=== PATIENT | female | born 1965 | race Caucasian/White ===

== ENCOUNTER → 2017-03-21 | Outpatient (CLI) | payer BC ==
--- NOTE | 2017-03-22 11:20 | MM ---
Reason for exam: screening (asymptomatic). Last mammogram was performed 1 year and 3 months ago. History: Patient had first child at age 41. Family history of breast cancer in maternal aunt at age 65, breast cancer in maternal grandmother at age 70, and breast cancer in mother at age 74. Benign right breast needle localzation of the right breast, September 08, 2011. Benign right mammotome panel of the right breast, August 09, 2011. Benign excisional biopsy of the right breast, November 11, 2004. Took hormonal contraceptives for 4 years beginning at age 27. Physical Findings: A clinical breast exam by your physician is recommended on an annual basis and results should be correlated with mammographic findings. MG Screening Mammo w CAD Bilateral CC and MLO view(s) were taken. Prior study comparison: December 21, 2015, bilateral MG screening mammo w CAD. October 22, 2014, bilateral MG screening mammo w CAD. The breast tissue is extremely dense which could obscure a lesion on mammography. Finding: There are typically benign dystrophic, round calcifications in both breasts. There is no discrete abnormality. ASSESSMENT: Benign, BI-RAD 2 RECOMMENDATION: Routine screening mammogram of both breasts in 1 year.
== END | disposition home or self-care (01) ==
LOC: RADMAMWWP 16:53
PROVIDERS: ATTEND Internal Medicine
DX: Z12.31 Encounter for screening mammogram for malignant neoplasm of breast (principal)

== ENCOUNTER → 2018-04-22 | Outpatient (CLI) | payer BC ==
--- NOTE | 2018-04-23 11:18 | MM ---
Reason for exam: screening (asymptomatic). Last mammogram was performed 1 year and 1 month ago. History: Patient had first child at age 41. Family history of breast cancer in maternal aunt at age 65, breast cancer in maternal grandmother at age 70, and breast cancer in mother at age 74. Benign right breast needle localzation of the right breast, September 08, 2011. Benign right mammotome panel of the right breast, August 09, 2011. Benign excisional biopsy of the right breast, November 11, 2004. Took hormonal contraceptives for 4 years beginning at age 27. Physical Findings: A clinical breast exam by your physician is recommended on an annual basis and results should be correlated with mammographic findings. MG Screening Mammo w CAD Bilateral CC and MLO view(s) were taken. Prior study comparison: March 21, 2017, bilateral MG screening mammo w CAD. December 21, 2015, bilateral MG screening mammo w CAD. The breast tissue is heterogeneously dense. This may lower the sensitivity of mammography. There is chronic nodularity bilaterally. No significant changes when compared with prior studies. ASSESSMENT: Benign, BI-RAD 2 RECOMMENDATION: Routine screening mammogram of both breasts in 1 year.
== END | disposition home or self-care (01) ==
LOC: RADMAMWWP 15:25
PROVIDERS: ATTEND Internal Medicine
DX: Z12.31 Encounter for screening mammogram for malignant neoplasm of breast (principal)
CPT/HCPCS: 77067

== ENCOUNTER → 2019-04-14 | Outpatient (CLI) | payer BC ==
--- NOTE | 2019-04-15 08:19 | XR ---
EXAMINATION TYPE: XR lumbosacral spine min 4V DATE OF EXAM: 04/14/2019 CLINICAL HISTORY: Low back pain, nontraumatic. TECHNIQUE: Frontal, lateral, and oblique images of the lumbar spine are obtained. COMPARISON: None FINDINGS: Stool overlies the lower lumbar vertebral bodies on the frontal and lateral images, limiti ng evaluation for lytic or sclerotic lesions. There are 5 lumbar type vertebral bodies identified. T he lumbar spine shows satisfactory alignment without evidence of acute fracture or dislocation. Multi level facet arthropathy is seen from L3 through S1 with small anterior osteophytes of the lumbar spin e. Vertebral body heights and disk space heights are within normal limits. The oblique images appea r within normal limits. The overlying soft tissue appears unremarkable. IMPRESSION: No acute fracture or malalignment is seen in the lumbar spine. Mild multilevel degenerat kareem disc disease of the lumbar spine.
== END ==
LOC: RADXRMAIN 19:03
PROVIDERS: ATTEND Internal Medicine
DX: M51.36 Other intervertebral disc degeneration, lumbar region (principal)
CPT/HCPCS: 72110

== ENCOUNTER → 2019-04-21 | Outpatient (CLI) | payer BC ==
--- NOTE | 2019-04-21 15:30 | XR ---
EXAMINATION TYPE: XR cervical spine comp DATE OF EXAM: 04/21/2019 TECHNIQUE: Frontal, lateral, oblique, swimmers, and open mouth view of the cervical spine are obtaine d. HISTORY: R52 Pain chronic neck pain with no known injury COMPARISON: None FINDINGS: The cervical spine is visualized in its entirety from C1 thru the top of T1 level, it is s atisfactory in alignment without evidence of acute fracture or dislocation. Prevertebral soft tissues are within normal limits. The C1-C2 articulation is aligned on the open mouth view. No odontoid frac ture is seen. Posterior projecting osteophytes are seen at C4-C5, C5-C6 and C6-C7. Oblique images dem onstrate very minimal neural foraminal narrowing on the right at C4-C5, C5-C6, C6-C7 and C7-T1 and on the left at C4-C5, C5-C6, and C6-C7. IMPRESSION: No acute fracture or dislocation is seen in the cervical spine. Moderate multilevel dege nerative disc disease of the cervical spine.
== END ==
LOC: RADXRWHC 14:54
PROVIDERS: ATTEND Internal Medicine
DX: M50.30 Other cervical disc degeneration, unspecified cervical region (principal)
CPT/HCPCS: 72050

== ENCOUNTER → 2019-05-02 | Outpatient (CLI) | payer BC ==
--- NOTE | 2019-05-02 12:17 | MR ---
EXAMINATION TYPE: MR lumbar spine wo con DATE OF EXAM: 05/02/2019 COMPARISON: Lumbar spine x-ray April 14, 2019 HISTORY: lumbago TECHNIQUE: Multiplanar, multisequence imaging of the lumbar spine is performed without IV contrast. FINDINGS: Sagittal images of the lumbar spine show vertebral body heights and alignment to appear sat isfactory. Multilevel disc desiccation is seen. Mild disc space narrowing L3-L4 level. The conus medu llaris is normal in position and signal ending L1-L2 level. Mild anterior spurring mid to lower lumba r spine. The bone marrow signal intensity is within normal limits. Axial images show the T12-L1, L1-L2, and L2-L3 levels all to appear within normal limits. Axial images at the L3-L4 level shows mild facet degenerative changes bilaterally with mild broad dis c bulge minimally effacing the anterior thecal sac. Patent bilateral neural foramina. Axial images at L4-L5 levels show digk-[id number] facet degenerative changes bilaterally and ligamen tian flavum hypertrophy. There is mild broad disc bulge with central disc protrusion component mildly effaces the anterior thecal sac. Bilateral neural foramina are patent. Axial images at the L5-S1 level without within normal limits. No suspicious incidental retroperitoneal findings. IMPRESSION: Multilevel degenerative changes most prominent L3-L4 and L4-L5 levels as detailed above.
== END ==
LOC: RADMRIMAIN 11:29
PROVIDERS: ATTEND Internal Medicine
DX: M48.061 Spinal stenosis, lumbar region without neurogenic claudication (principal); M51.16 Intervertebral disc disorders with radiculopathy, lumbar region; M47.816 Spondylosis without myelopathy or radiculopathy, lumbar region
CPT/HCPCS: 72148

== ENCOUNTER → 2019-05-28 | Outpatient (CLI) | payer BC ==
--- NOTE | 2019-05-30 10:12 | MM ---
Reason for exam: screening (asymptomatic). Last mammogram was performed 1 year and 1 month ago. History: Patient had first child at age 41. Family history of breast cancer in maternal aunt at age 65, breast cancer in maternal grandmother at age 70, and breast cancer in mother at age 74. Benign right breast needle localzation of the right breast, September 08, 2011. Benign right mammotome panel of the right breast, August 09, 2011. Benign excisional biopsy of the right breast, November 11, 2004. Took hormonal contraceptives for 4 years beginning at age 27. Physical Findings: A clinical breast exam by your physician is recommended on an annual basis and results should be correlated with mammographic findings. MG Screening Mammo w CAD Bilateral CC and MLO view(s) were taken. Prior study comparison: April 22, 2018, bilateral MG screening mammo w CAD. March 21, 2017, bilateral MG screening mammo w CAD. The breast tissue is extremely dense which could obscure a lesion on mammography. There is chronic nodularity in the left breast medially on the CC view. No significant changes when compared with prior studies. ASSESSMENT: Benign, BI-RAD 2 RECOMMENDATION: Routine screening mammogram of both breasts in 1 year. Patient should continue monthly self breast exams. A negative report should not preclude additional follow up of suspicious palpable abnormalities.
== END | disposition home or self-care (01) ==
LOC: RADMAMWWP 16:13
PROVIDERS: ATTEND Internal Medicine
DX: Z12.31 Encounter for screening mammogram for malignant neoplasm of breast (principal)
CPT/HCPCS: 77067

== ENCOUNTER → 2020-10-01 | Outpatient (CLI) | payer BC ==
--- NOTE | 2020-10-07 10:36 | MM ---
Reason for exam: screening (asymptomatic). Last mammogram was performed 1 year and 4 months ago. History: Patient is postmenopausal and had first child at age 41. Family history of breast cancer in maternal aunt at age 65, breast cancer in maternal grandmother at age 70, and breast cancer in mother at age 74. Benign right breast needle localzation of the right breast, September 08, 2011. Benign right mammotome panel of the right breast, August 09, 2011. Benign excisional biopsy of the right breast, November 11, 2004. Took hormonal contraceptives for 4 years beginning at age 27. Physical Findings: A clinical breast exam by your physician is recommended on an annual basis and results should be correlated with mammographic findings. MG Screening Mammo w CAD Bilateral CC and MLO view(s) were taken. Prior study comparison: May 28, 2019, bilateral MG screening mammo w CAD. April 22, 2018, bilateral MG screening mammo w CAD. The breast tissue is extremely dense which could obscure a lesion on mammography. There is chronic nodularity in the left breast medially. Regional punctate calcifications left breast are unchanged. No significant changes when compared with prior studies. ASSESSMENT: Benign, BI-RAD 2 RECOMMENDATION: Routine screening mammogram of both breasts in 1 year. Patient should continue monthly self breast exams. A negative report should not preclude additional follow up of suspicious palpable abnormalities.
== END | disposition home or self-care (01) ==
LOC: RADMAMWWP 14:59
PROVIDERS: ATTEND Internal Medicine
DX: Z12.31 Encounter for screening mammogram for malignant neoplasm of breast (principal)
CPT/HCPCS: 77067

== ENCOUNTER → 2021-11-01 | Outpatient (CLI) | payer BC ==
--- NOTE | 2021-11-01 09:14 | XR ---
EXAMINATION TYPE: XR chest 2V DATE OF EXAM: 11/01/2021 COMPARISON: Chest x-ray August 23, 2015 HISTORY: Cough. TECHNIQUE: Frontal and lateral views of the chest are obtained. FINDINGS: There is no suspicious new focal air space opacity, pleural effusion, or pneumothorax see n. The cardiac silhouette size remains within normal limits. Underlying scoliotic curvature redemons trated. IMPRESSION: No acute process .
== END | disposition home or self-care (01) ==
LOC: RADXRMAIN 08:49
PROVIDERS: ATTEND Internal Medicine
DX: R05.9 Cough, unspecified (principal)
CPT/HCPCS: 71046

== ENCOUNTER → 2021-12-02 | Outpatient (CLI) | payer BC ==
--- NOTE | 2021-12-06 08:35 | MM ---
Reason for Exam: Screening (asymptomatic). Last mammogram was performed 1 year(s) and 2 month(s) ago. Patient History: Menarche at age 14. First Full-Term at age 41. Late child-bearing (after 30). Postmenopausal. Hormonal Contraceptives for 4 years from age 27 until age 31. 11/11/2004, Benign Excisional Biopsy on the right side. 09/08/2011, Benign Excisional Biopsy on the right side. 08/09/2011, Benign Core Biopsy on the right side. Maternal grandmother had breast cancer, age 70. Maternal aunt had breast cancer, age 65. Mother had breast cancer, age 74. Risk Values: Idalia 5 year model risk: 3.6%. NCI Lifetime model risk: 22.8%. Film Views: Bilateral CC views were taken. Bilateral MLO views were taken. Prior Study Comparison: 04/22/2018 Bilateral Screening Mammogram, [facility]. 05/28/2019 Bilateral Screening Mammogram, [facility]. 10/01/2020 Bilateral Screening Mammogram, [facility]. Tissue Density: The breast tissue is extremely dense which could obscure a lesion on mammography. Findings: Analyzed By CAD. Few scattered benign-appearing round and punctate calcifications bilaterally are redemonstrated. There is no new distortion or new suspicious group of microcalcifications in either breast. Overall Assessment: Benign, BI-RAD 2 Management: Screening Mammogram of both breasts in 1 year. Some advise annual bilateral breast ultrasound surveillance of patient's with background dense tissue. Electronically signed and approved by: Raymond Alfred M.D.
== END | disposition home or self-care (01) ==
LOC: RADMAMWWP 16:56
PROVIDERS: ATTEND Internal Medicine
DX: Z12.31 Encounter for screening mammogram for malignant neoplasm of breast (principal)
CPT/HCPCS: 77067

== ENCOUNTER → 2021-12-14 | Outpatient (CLI) | payer BC | END | disposition home or self-care (01) | LOC: LABWHC1 14:53 | PROVIDERS: ATTEND Internal Medicine | DX: R53.83 Other fatigue (principal) | CPT/HCPCS: 36415; 84443 ==

== ENCOUNTER → 2022-11-02 | Outpatient (CLI) | payer BC ==
--- NOTE | 2022-11-02 08:01 | CTL ---
EXAMINATION TYPE: CT Low Dose Lung DATE OF EXAM ORDERED: 11/02/2022 COMPARISON: HISTORY: . Low Dose CT Lung Screening CT DLP: 38.[address] CTDI: 1.0 mGy IV CONTRAST USED: None. SCREENING VISIT: First visit COMPARISON: None. TECHNIQUE: Low dose computed tomography scan was performed through the chest at 1 millimeter thick se ctions and reconstructed images in the coronal plane at [address] DIAGNOSTIC QUALITY: Satisfactory FINDINGS: LUNG NODULES: Not presentLeft lung: no nodules identified.Right lung: no nodules identified. LUNGS: COPD: Severity: Mild Fibrosis: Severity:None Lymph nodes: None Other findings: There is biapical scarring noted. RIGHT PLEURAL SPACE: Effusion: None Calcification: None Thickening: None Pneumothorax: None LEFT PLEURAL SPACE: Effusion: None Calcification: None Thickening: None Pneumothorax: None HEART: Heart Size: Mildly enlarged Coronary calcification: Mild Pericardial effusion: None OTHER FINDINGS: Upper abdomen: No significant abnormality Bony thorax: Degenerative changes Supraclavicular region: No significant abnormalityOther: No significant abnormalityI IMPRESSION: No suspicious nodule seen over [address] CHEST RECOMMENDATION: Follow-up screening in one year CT LUNG RAD: LUNG RAD CATEGORY 1 negative
== END | disposition home or self-care (01) ==
LOC: RADCTMAIN 06:13
PROVIDERS: ATTEND Internal Medicine
DX: Z12.2 Encounter for screening for malignant neoplasm of respiratory organs (principal); F17.210 Nicotine dependence, cigarettes, uncomplicated
CPT/HCPCS: 71271

== ENCOUNTER → 2022-12-12 | Outpatient (CLI) | payer BC ==
--- NOTE | 2022-12-13 09:02 | MM ---
Reason for Exam: Screening (asymptomatic). Last mammogram was performed 1 year(s) and 1 month(s) ago. Patient History: Menarche at age 14. First Full-Term at age 41. Late child-bearing (after 30). Postmenopausal. Hormonal Contraceptives for 4 years from age 27 until age 31. 11/11/2004, Benign Excisional Biopsy on the right side. 09/08/2011, Benign Excisional Biopsy on the right side. 08/09/2011, Benign Core Biopsy on the right side. Maternal grandmother had breast cancer, age 70. Maternal aunt had breast cancer, age 65. Mother had breast cancer, age 74. Risk Values: Idalia 5 year model risk: 3.7%. NCI Lifetime model risk: 22.4%. Prior Study Comparison: 05/28/2019 Bilateral Screening Mammogram, [facility]. 10/01/2020 Bilateral Screening Mammogram, [facility]. 12/02/2021 Bilateral MG screening mammo w CAD, [facility]. Tissue Density: The breast tissue is extremely dense which could obscure a lesion on mammography. Findings: Analyzed By CAD. There are scattered and loosely grouped benign-appearing rounded dystrophic calcifications bilaterally redemonstrated. There is no suspicious group of microcalcifications or new suspicious mass in either breast. Overall Assessment: Benign, BI-RAD 2 Management: Screening Mammogram of both breasts in 1 year. . Patient should continue monthly self-breast exams. A clinical breast exam by your physician is recommended on an annual basis. This exam should not preclude additional follow-up of suspicious palpable abnormalities. Note on Idalia scores and lifetime risk: 1. A Idalia score greater than 3% is considered moderate risk. If this is the case, consider specialist referral to assess eligibility for a risk reducing agent. 2. If overall lifetime risk for the development of breast cancer is 20% or higher, the patient may qualify for future screening with alternating mammogram and breast MRI. Electronically signed and approved by: Raymond Alfred M.D.
== END | disposition home or self-care (01) ==
LOC: RADMAMWWP 07:26
PROVIDERS: ATTEND Internal Medicine
DX: Z12.31 Encounter for screening mammogram for malignant neoplasm of breast (principal); Z78.0 Asymptomatic menopausal state; Z80.3 Family history of malignant neoplasm of breast
CPT/HCPCS: 77063; 77067

== ENCOUNTER → 2022-12-25 | Outpatient (CLI) | payer BC ==
--- NOTE | 2022-12-25 18:36 | BD ---
EXAMINATION TYPE: Axial Bone Density DATE OF EXAM: 12/25/2022 CLINICAL HISTORY: 57 years old Female. ICD-10 CODE: N95.8 MENOPAUSAL AND PERIMENOPAUSAL STATE Height: 64.5" Weight: 107.3lbs FRAX RISK QUESTIONS: Alcohol (3 or more units per day): No Family History (Parent hip fracture): No Glucocorticoids (More than 3mos): No (Ex: prednisone, prednisolone, methylprednisolone, dexamethasone, and hydrocortisone). History of Fracture in Adulthood: No Secondary Osteoporosis: 1. Type 1 Diabetes: No 2. Hyperthyroidism: Yes, managing with diet not medications 3. Menopause before 45: No 4. Malnutrition: No 5. Chronic liver disease: No Rheumatoid Arthritis: No Current Tobacco Use: No RISK FACTORS HISTORY OF: Hip Fracture (Right/Left): No Spine Fracture: No History of Wrist Fracture: No Surgery to Spine/Hip(right/left)/Wrist (right/left): No Family History of Osteoporosis: No Active: Yes Diet low in dairy products/other sources of calcium: No Postmenopausal woman: Yes Lost more than 2 inches in height since high school: No Frequent falls: No Poor Health: No Hyperparathyroidism: No Adrenal Insufficiency: No MEDICATIONS: Prednisone or other steroids: No Thyroid Medications: No Osteoporosis Medications: No Additional Medications: Calcium, OTC menopause Estroven Additional History: None EXAM MEASUREMENTS: Bone mineral densitometry was performed using the [employer] System. Bone mineral density as measured about the Lumbar spine is: ----- L1-L4(G/cm2): 1.021 T Score Values are as follows: ----- L1: -1.7 ----- L2: -1.6 ----- L3: -0.9 ----- L4: -1.3 ----- L1-L4: -1.3 Z Score Values are as follows: ----- L1: -0.2 ----- L2: -0.2 ----- L3: 0.5 ----- L4: 0.1 ----- L1-L4: 0.1 Baseline Bone mineral density about the R hip (g/cm2): 0.686 Bone mineral density about the L hip (g/cm2): 0.668 T Score values are as follows: -----R Neck: -2.6 -----L Neck: -2.7 -----R Total: -2.5 -----L Total: -2.7 Z Score values are as follows: -----R Neck: -1.2 -----L Neck: -1.3 -----R Total: -1.5 -----L Total: -1.6 Baseline FRAX%s: The graph provided illustrates a 9.0% chance for a major osteoporotic fx and a 2.2% chance fo r the hips probability for fx in 10 years time. IMPRESSION: Osteoporosis (T Score less than -2.5). There is increased fracture risk and therapy is usually indicated based on age. Re-Screen 1-2 years. NOTE: T-SCORE=SD OF THE YOUNG ADULT MEAN.
== END | disposition home or self-care (01) ==
LOC: RADBDWWP 15:38
PROVIDERS: ATTEND Internal Medicine
DX: M81.0 Age-related osteoporosis without current pathological fracture (principal); E05.90 Thyrotoxicosis, unspecified without thyrotoxic crisis or storm; N95.8 Other specified menopausal and perimenopausal disorders
CPT/HCPCS: 77080

== ENCOUNTER → 2023-11-14 | Outpatient (CLI) | payer BC ==
--- NOTE | 2023-11-14 16:02 | CTL ---
EXAMINATION TYPE: CT Low Dose Lung DATE OF EXAM: 11/14/2023 3:44 PM CLINICAL INDICATION:Female, 58 years old with history of Z12.2 ENCNTR SCREEN FOR MALIGNANT NEOPLASM O F RESP; personal tobacco use , history of tobacco use. COMPARISON: 11/02/2022 TECHNIQUE: Multiple axial non-contrast scans were obtained from approximately the lung apices through the upper abdomen. Coronal and sagittal reformatted images were obtained. Low dose technique was uti lized. CT DLP: 79 mGycm, Automated exposure control for dose reduction was used. CT Contrast: Contrast used: None Oral contrast used: None FINDINGS: ======== Lack of intravenous contrast and low dose technique limits the evaluation of the vascular and soft ti ssue structures. LUNGS: No evidence of pulmonary fibrosis. No evidence of focal consolidation, pneumothorax or pleural effusion. Mild centrilobular emphysema changes throughout the lungs Nodules: RUL: None. RML: None. RLL: None. ALLI: None. LLL: None. AIRWAY: Patent and unremarkable. HEART: Size within normal limits. MEDIASTINUM: No gross evidence of adenopathy. VASCULATURE: No aortic aneurysm. MUSCULOSKELETAL: No acute osseous abnormalities SOFT TISSUES/LYMPH NODES: Unremarkable. LOWER NECK: No significant findings. UPPER ABDOMEN: No significant findings. IMPRESSION: 1. No clinically significant pulmonary nodules. 2. Mild emphysema. CT LUNG RAD AND CT CHEST RECOMMENDATION: Lung-Rad 1 Negative: Continue annual screening with LDCT in 12 months. S Modifier (other clinically significant findings): None Recommend smoking cessation (if current smoker), or continuation of smoking cessation (if prior smoke r). Annual screening for lung cancer with low-dose computed tomography is recommended in adults ages 55 to 77 years who have a 30 pack-year smoking history and currently smoke or have quit within the pa st 15 years. Screening should be discontinued once a person has not smoked for 15 years or develops a health problem that substantially limits life expectancy or the ability or willingness to have curat kareem lung surgery. Lung rads 2021 [email or web address]
== END | disposition home or self-care (01) ==
LOC: RADCTMAIN 14:59
PROVIDERS: ATTEND Internal Medicine
DX: Z12.2 Encounter for screening for malignant neoplasm of respiratory organs (principal); J43.2 Centrilobular emphysema; Z87.891 Personal history of nicotine dependence
CPT/HCPCS: 71271

== ENCOUNTER → 2023-12-14 | Outpatient (CLI) | payer BC ==
--- NOTE | 2023-12-17 13:22 | MM ---
Reason for Exam: Screening (asymptomatic). Last screening mammogram was performed 12 month(s) ago. Patient History: Menarche at age 14. First Full-Term at age 41. Late child-bearing (after 30). Postmenopausal. Hormonal Contraceptives for 4 years from age 27 until age 31. 11/11/2004, Benign Excisional Biopsy on the right side. 09/08/2011, Benign Excisional Biopsy on the right side. 08/09/2011, Benign Core Biopsy on the right side. Maternal grandmother had breast cancer, age 70. Maternal aunt had breast cancer, age 65. Mother had breast cancer, age 74. Risk Values: Idalia 5 year model risk: 3.9%. NCI Lifetime model risk: 22.0%. Prior Study Comparison: 10/01/2020 Bilateral Screening Mammogram, [facility]. 12/02/2021 Bilateral MG screening mammo w CAD, [facility]. 12/12/2022 Bilateral MG 3D screening mammo w/cad, [facility]. Tissue Density: The breasts are extremely dense, which lowers the sensitivity of mammography. Findings: Analyzed By CAD. There is no suspicious group of microcalcifications or new suspicious mass in either breast. Overall Assessment: Benign, BI-RAD 2 Management: Screening Mammogram of both breasts in 1 year. . Patient should continue monthly self-breast exams. A clinical breast exam by your physician is recommended on an annual basis. This exam should not preclude additional follow-up of suspicious palpable abnormalities. Note on Idalia scores and lifetime risk: 1. A Idalia score greater than 3% is considered moderate risk. If this is the case, consider specialist referral to assess eligibility for a risk reducing agent. 2. If overall lifetime risk for the development of breast cancer is 20% or higher, the patient may qualify for future screening with alternating mammogram and breast MRI. Electronically signed and approved by: Aung Tyler M.D. Radiologis
== END | disposition home or self-care (01) ==
LOC: RADMAMWWP 14:53
PROVIDERS: ATTEND Internal Medicine
DX: Z12.31 Encounter for screening mammogram for malignant neoplasm of breast (principal); Z78.0 Asymptomatic menopausal state; Z80.3 Family history of malignant neoplasm of breast
CPT/HCPCS: 77063; 77067

== ENCOUNTER → 2024-12-16 | Outpatient (CLI) | payer BC ==
--- NOTE | 2024-12-17 07:34 | MM ---
Reason for Exam: Screening (asymptomatic). Last screening mammogram was performed 12 month(s) ago. Patient History: Menarche at age 14. First Full-Term at age 41. Late child-bearing (after 30). Postmenopausal. Hormonal Contraceptives for 4 years from age 27 until age 31. 11/11/2004, Benign Excisional Biopsy on the right side. 09/08/2011, Benign Excisional Biopsy on the right side. 08/09/2011, Benign Core Biopsy on the right side. Maternal grandmother had breast cancer, age 70. Maternal aunt had breast cancer, age 65. Mother had breast cancer, age 74. Risk Values: Idalia 5 year model risk: 4.0%. NCI Lifetime model risk: 21.5%. Prior Study Comparison: 12/02/2021 Bilateral MG screening mammo w CAD, [facility]. 12/12/2022 Bilateral MG 3D screening mammo w/cad, [facility]. 12/14/2023 Bilateral MG 3D screening mammo w/cad, [facility]. Tissue Density: The breasts are extremely dense, which lowers the sensitivity of mammography. Findings: Analyzed By CAD. There are several scattered small benign-appearing round calcifications bilaterally redemonstrated. There is no suspicious group of microcalcifications or new distortion in either breast. Overall Assessment: Benign, BI-RAD 2 Management: Screening Mammogram of both breasts in 1 year. Some Advise annual bilateral breast ultrasound surveillance in patient's with background dense tissue. Patient should continue monthly self-breast exams. A clinical breast exam by your physician is recommended on an annual basis. This exam should not preclude additional follow-up of suspicious palpable abnormalities. Note on Idalia scores and lifetime risk: 1. A Idalia score greater than 3% is considered moderate risk. If this is the case, consider specialist referral to assess eligibility for a risk reducing agent. 2. If overall lifetime risk for the development of breast cancer is 20% or higher, the patient may qualify for future screening with alternating mammogram and breast MRI. [facility], , 12/17/2024 7:31 AM. Electronically signed and approved by: Raymond Alfred M.D.
== END | disposition home or self-care (01) ==
LOC: RADMAMWWP 15:54
PROVIDERS: ATTEND Internal Medicine
DX: Z12.31 Encounter for screening mammogram for malignant neoplasm of breast (principal); R92.343 Mammographic extreme density, bilateral breasts; Z78.0 Asymptomatic menopausal state; Z80.3 Family history of malignant neoplasm of breast; Z92.0 Personal history of contraception
CPT/HCPCS: 77063; 77067